=== PATIENT | female | born 1950 | race Caucasian/White ===

== ENCOUNTER 2021-09-09 11:16 | Inpatient (IN) ==
[2021-09-09 11:45] LABS: Basophils # 0.1 10*3/uL (0.0-0.2); Basophils % 0.4 % (0.0-0.8); Eosinophils # 0.3 10*3/uL (0.0-0.87); Eosinophils % 2.7 % (0.00-10.9); Hematocrit 39.6 VOL% (35.7-47.0); Hemoglobin 12.5 GM/DL (12.0-16.0); Immature Granulocytes % 0.6 %; Immature Granulocytes Absolute 0.07 #; Lymphocytes # 1.3 10*3/uL (1.4-4.0); Lymphocytes % 10.1 % (21.3-54.2); Mean Corpuscular HGB Conc 31.6 GM/DL (32-36); Mean Corpuscular Volume 95.9 FL (87-102); Mean Platelet Volume 10.6 FL (9.6-12.0); Monocytes # 0.8 10*3/uL (0.11-0.8); Monocytes % 6.6 % (1.7-12.7); Neutrophils % 79.6 % (38.7-73.9); Platelet Count 355 T/CUMM (130-400); Red Blood Count 4.13 MC/CUMM (3.8-5.5); Red Cell Distribution Width 14.7 % (9.3-17.3); White Blood Count 12.6 T/CUMM (4-12)
[2021-09-09 12:10] LABS: Alanine Aminotransferase 10 U/L (13-56); Albumin 3.6 G/DL (3.4-5.0); Alkaline Phosphatase 111 U/L (45-117); Aspartate Amino Transferase 15 U/L (0-37); Bilirubin,Total < 0.39 MG/DL (0.20-1.00); Blood Urea Nitrogen 16 MG/DL (7-18); Calcium 9.4 MG/DL (8.5-10.1); Carbon Dioxide 27 MMOL/L (21-32); Chloride 107 MMOL/L (98-107); Glucose 160 MG/DL (74-106); Osmolality,Calculated 282.4 MOS/KG (273-304); Potassium 4.5 MMOL/L (3.5-5.1); Sodium 140 MMOL/L (136-145); Total Protein 6.9 G/DL (6.4-8.2)
[2021-09-09 13:57] LABS: Thyroid Stimulating Hormone 1.94 uIU/ml (0.358-3.74)
[2021-09-09] MEDS ORDERED: GLUCAGON 1 MG VIAL IM PRN (19:16)
[2021-09-09] MEDS ORDERED: MORPHINE 2 MG/1 ML SYRINGE IV PRN (19:16)
[2021-09-09] MEDS ORDERED: ACETAMINOPHEN 325 MG TABLET PO PRN (19:16)
[2021-09-09] MEDS ORDERED: ONDANSETRON 4 MG/2 ML VIAL IV PRN (19:16)
[2021-09-09] MEDS ORDERED: DEXTROSE 10% 250 ML BAG IV PRN (19:18)
[2021-09-09] MEDS: INSULIN REGULAR 100 UNIT/ML SUBCUT SCH (20:00)
[2021-09-09] MEDS: DOCUSATE SODIUM 100 MG CAPSULE PO SCH (20:59)
[2021-09-09] MEDS: metroNIDAZOLE INJ 500 MG/100 ML PREMIX IV SCH (21:12)
[2021-09-09] MEDS ORDERED: NITROGLYCERIN SL 0.4 MG TABLET SL PRN (22:15)
[2021-09-09] MEDS: LOSARTAN 25 MG TABLET PO SCH (22:40)
[2021-09-09] MEDS ORDERED: NAPROXEN 250 MG TABLET PO PRN ×2 (22:48→23:30)
[2021-09-09] MEDS ORDERED: FLUTICASONE 50 MCG NASAL SPRAY 16 GM BOTTLE BOTH NARES PRN (22:52)
[2021-09-09] MEDS ORDERED: ALBUTEROL 0.63 MG/3 ML NEB RESP TX PRN (23:00)
[2021-09-09] MEDS ORDERED: ALBUTEROL 0.63 MG/3 ML NEB RESP TX SCH (23:00)
[2021-09-09] MEDS: BUDESONIDE 0.25 MG/2 ML NEB RESP TX SCH (23:42)
[2021-09-10] MEDS: DULoxetine 30 MG CAPSULE PO SCH ×2 (03:27→21:36)
[2021-09-10] MEDS: POTASSIUM CHLORIDE 20 MEQ TABLET PO SCH ×3 (03:27→21:35)
[2021-09-10] MEDS: CARBIDOPA/LEVODOPA CR 25-100 MG TABLET PO SCH ×3 (03:27→18:40)
[2021-09-10 05:23] LABS: Basophils % 0.4 % (0.0-0.8); Eosinophils # 0.6 10*3/uL (0.0-0.87); Eosinophils % 7.2 % (0.00-10.9); Hematocrit 34.1 VOL% (35.7-47.0); Hemoglobin 10.5 GM/DL (12.0-16.0); Immature Granulocytes % 0.6 %; Immature Granulocytes Absolute 0.05 #; Lymphocytes # 1.7 10*3/uL (1.4-4.0); Lymphocytes % 21.9 % (21.3-54.2); Mean Corpuscular HGB Conc 30.8 GM/DL (32-36); Mean Corpuscular Volume 97.7 FL (87-102); Mean Platelet Volume 10.7 FL (9.6-12.0); Monocytes # 0.7 10*3/uL (0.11-0.8); Monocytes % 8.5 % (1.7-12.7); Neutrophils % 61.4 % (38.7-73.9); Platelet Count 268 T/CUMM (130-400); Red Blood Count 3.49 MC/CUMM (3.8-5.5); Red Cell Distribution Width 14.9 % (9.3-17.3)
[2021-09-10 05:48] LABS: Calcium 8.5 MG/DL (8.5-10.1); Osmolality,Calculated 290.7 MOS/KG (273-304); Potassium 4.2 MMOL/L (3.5-5.1)
[2021-09-10] MEDS: LEVOTHYROXINE 75 MCG TABLET PO SCH (06:04)
[2021-09-10] MEDS: BUDESONIDE 0.25 MG/2 ML NEB RESP TX SCH ×2 (07:25→19:58)
[2021-09-10] MEDS ORDERED: FUROSEMIDE 80 MG TABLET PO SCH (09:00)
[2021-09-10] MEDS ORDERED: INSULIN GLARGINE 100 UNIT/ML SUBCUT SCH (09:00)
[2021-09-10] MEDS ORDERED: predniSONE 5 MG TABLET PO SCH (09:00)
[2021-09-10] MEDS: INSULIN LISPRO 100 UNIT/ML SUBCUT SCH ×2 (10:10→12:14)
[2021-09-10] MEDS: SIMVASTATIN 10 MG TABLET PO SCH (10:11)
[2021-09-10] MEDS: LORATADINE 10 MG TABLET PO SCH (10:11)
[2021-09-10] MEDS: sitaGLIPtin 100 MG TABLET PO SCH (10:12)
[2021-09-10] MEDS: VERAPAMIL SR 180 MG TABLET PO SCH (10:12)
[2021-09-10] MEDS: DOCUSATE SODIUM 100 MG CAPSULE PO SCH ×2 (10:12→21:34)
[2021-09-10] MEDS: LOSARTAN 25 MG TABLET PO SCH ×2 (10:12→21:35)
[2021-09-10] MEDS: PANTOPRAZOLE 40 MG TABLET PO SCH (10:12)
[2021-09-10] MEDS: TAMOXIFEN 20 MG PO SCH (10:54)
[2021-09-10] MEDS: INSULIN REGULAR 100 UNIT/ML SUBCUT SCH ×2 (10:55→17:34)
[2021-09-10] MEDS: ACETAMINOPHEN 325 MG TABLET PO SCH ×2 (12:13→21:35)
[2021-09-10] MEDS: GABAPENTIN 100 MG CAPSULE PO SCH ×3 (12:13→21:34)
[2021-09-10] MEDS: metroNIDAZOLE INJ 500 MG/100 ML PREMIX IV SCH (12:23)
[2021-09-10] MEDS: methylPREDNISolone SOD SUC 40 MG/1 ML VIAL IV SCH ×2 (13:40→21:36)
[2021-09-10] MEDS: FUROSEMIDE 40 MG/4 ML VIAL IV SCH (17:35)
[2021-09-10] MEDS ORDERED: FUROSEMIDE 40 MG TABLET PO SCH (19:00)
[2021-09-10] MEDS: RIVAROXABAN 10 MG TABLET PO SCH (21:49)
[2021-09-11] MEDS: metroNIDAZOLE INJ 500 MG/100 ML PREMIX IV SCH ×3 (00:50→22:36)
[2021-09-11] MEDS: CARBIDOPA/LEVODOPA CR 25-100 MG TABLET PO SCH ×3 (00:52→18:35)
[2021-09-11 05:26] LABS: Basophils % 0.1 % (0.0-0.8); Hematocrit 35.6 VOL% (35.7-47.0); Hemoglobin 11.2 GM/DL (12.0-16.0); Immature Granulocytes % 0.9 %; Immature Granulocytes Absolute 0.13 #; Lymphocytes # 0.7 10*3/uL (1.4-4.0); Lymphocytes % 4.8 % (21.3-54.2); Mean Corpuscular HGB Conc 31.5 GM/DL (32-36); Mean Corpuscular Volume 96.2 FL (87-102); Mean Platelet Volume 10.7 FL (9.6-12.0); Monocytes # 0.2 10*3/uL (0.11-0.8); Monocytes % 1.3 % (1.7-12.7); Neutrophils % 92.9 % (38.7-73.9); Platelet Count 293 T/CUMM (130-400); Red Cell Distribution Width 14.6 % (9.3-17.3); White Blood Count 14.1 T/CUMM (4-12)
[2021-09-11 05:33] LABS: Calcium 9.4 MG/DL (8.5-10.1); Osmolality,Calculated 290.4 MOS/KG (273-304); Potassium 4.8 MMOL/L (3.5-5.1)
[2021-09-11 05:42] LABS: Anisocytosis 1+; Band Neutrophils 4 % (0-10); Lymphocytes 4 % (20-55); Macrocytosis 1+; Platelet Estimate Normal; Total Cells Counted 100
[2021-09-11] MEDS: methylPREDNISolone SOD SUC 40 MG/1 ML VIAL IV SCH ×2 (05:49→12:41)
[2021-09-11] MEDS: LEVOTHYROXINE 75 MCG TABLET PO SCH (05:49)
[2021-09-11] MEDS: BUDESONIDE 0.25 MG/2 ML NEB RESP TX SCH ×2 (07:38→19:19)
[2021-09-11] MEDS: FUROSEMIDE 40 MG/4 ML VIAL IV SCH ×2 (09:25→15:57)
[2021-09-11] MEDS: PANTOPRAZOLE 40 MG TABLET PO SCH (09:26)
[2021-09-11] MEDS: SIMVASTATIN 10 MG TABLET PO SCH (09:26)
[2021-09-11] MEDS: POTASSIUM CHLORIDE 20 MEQ TABLET PO SCH ×2 (09:26→22:33)
[2021-09-11] MEDS: GABAPENTIN 100 MG CAPSULE PO SCH ×3 (09:26→22:35)
[2021-09-11] MEDS: sitaGLIPtin 100 MG TABLET PO SCH (09:26)
[2021-09-11] MEDS: ACETAMINOPHEN 325 MG TABLET PO SCH ×2 (09:26→22:37)
[2021-09-11] MEDS: LORATADINE 10 MG TABLET PO SCH (09:26)
[2021-09-11] MEDS: DOCUSATE SODIUM 100 MG CAPSULE PO SCH ×2 (09:26→22:34)
[2021-09-11] MEDS: LOSARTAN 25 MG TABLET PO SCH ×2 (09:26→22:34)
[2021-09-11] MEDS: VERAPAMIL SR 180 MG TABLET PO SCH (09:26)
[2021-09-11] MEDS: INSULIN GLARGINE 100 UNIT/ML SUBCUT SCH (09:27)
[2021-09-11] MEDS: INSULIN REGULAR 100 UNIT/ML SUBCUT SCH ×2 (09:27→17:00)
[2021-09-11] MEDS: INSULIN LISPRO 100 UNIT/ML SUBCUT SCH ×2 (09:28→12:41)
[2021-09-11] MEDS ORDERED: NITROGLYCERIN 2% OINT 1 INCH/GM PACK TOP ONE (10:05)
[2021-09-11] MEDS: TAMOXIFEN 20 MG PO SCH (11:08)
[2021-09-11] MEDS: DULoxetine 30 MG CAPSULE PO SCH (22:34)
[2021-09-11] MEDS: RIVAROXABAN 10 MG TABLET PO SCH (22:37)
[2021-09-12] MEDS: CARBIDOPA/LEVODOPA CR 25-100 MG TABLET PO SCH ×3 (00:22→18:08)
[2021-09-12] MEDS: methylPREDNISolone SOD SUC 40 MG/1 ML VIAL IV SCH ×3 (01:51→21:28)
[2021-09-12] MEDS: LEVOTHYROXINE 75 MCG TABLET PO SCH (05:33)
[2021-09-12 06:08] LABS: Basophils % 0.2 % (0.0-0.8); Hematocrit 36.5 VOL% (35.7-47.0); Hemoglobin 11.4 GM/DL (12.0-16.0); Immature Granulocytes % 1.4 %; Immature Granulocytes Absolute 0.25 #; Lymphocytes # 0.7 10*3/uL (1.4-4.0); Lymphocytes % 3.7 % (21.3-54.2); Mean Corpuscular HGB Conc 31.2 GM/DL (32-36); Mean Corpuscular Volume 96.8 FL (87-102); Mean Platelet Volume 10.8 FL (9.6-12.0); Monocytes # 0.6 10*3/uL (0.11-0.8); Monocytes % 3.5 % (1.7-12.7); Neutrophils % 91.2 % (38.7-73.9); Platelet Count 322 T/CUMM (130-400); Red Blood Count 3.77 MC/CUMM (3.8-5.5); Red Cell Distribution Width 15.2 % (9.3-17.3); White Blood Count 17.7 T/CUMM (4-12)
[2021-09-12 06:33] LABS: Anisocytosis 1+; Band Neutrophils 1 % (0-10); Eosinophils 1 % (0-10); Lymphocytes 4 % (20-55); Macrocytosis Slight; Platelet Estimate Normal; Total Cells Counted 100
[2021-09-12 06:34] LABS: Calcium 9.2 MG/DL (8.5-10.1); Osmolality,Calculated 290.3 MOS/KG (273-304); Potassium 4.4 MMOL/L (3.5-5.1)
[2021-09-12] MEDS: BUDESONIDE 0.25 MG/2 ML NEB RESP TX SCH ×2 (07:05→19:38)
[2021-09-12] MEDS: INSULIN LISPRO 100 UNIT/ML SUBCUT SCH (09:39)
[2021-09-12] MEDS: INSULIN GLARGINE 100 UNIT/ML SUBCUT SCH (09:39)
[2021-09-12] MEDS: INSULIN REGULAR 100 UNIT/ML SUBCUT SCH ×2 (09:39→18:08)
[2021-09-12] MEDS: FUROSEMIDE 40 MG/4 ML VIAL IV SCH ×2 (09:39→16:38)
[2021-09-12] MEDS: VERAPAMIL SR 180 MG TABLET PO SCH (09:39)
[2021-09-12] MEDS: LORATADINE 10 MG TABLET PO SCH (09:40)
[2021-09-12] MEDS: LOSARTAN 25 MG TABLET PO SCH ×2 (09:40→21:27)
[2021-09-12] MEDS: sitaGLIPtin 100 MG TABLET PO SCH (09:40)
[2021-09-12] MEDS: POTASSIUM CHLORIDE 20 MEQ TABLET PO SCH ×2 (09:40→21:27)
[2021-09-12] MEDS: PANTOPRAZOLE 40 MG TABLET PO SCH (09:40)
[2021-09-12] MEDS: SIMVASTATIN 10 MG TABLET PO SCH (09:40)
[2021-09-12] MEDS: DOCUSATE SODIUM 100 MG CAPSULE PO SCH ×2 (09:40→21:27)
[2021-09-12] MEDS: ACETAMINOPHEN 325 MG TABLET PO SCH ×2 (09:40→21:26)
[2021-09-12] MEDS: GABAPENTIN 100 MG CAPSULE PO SCH ×3 (09:40→21:28)
[2021-09-12] MEDS ORDERED: POTASSIUM CHLORIDE RIDER 10 MEQ/100 ML PREMIX IV PRN (10:43)
[2021-09-12] MEDS ORDERED: MAGNESIUM SULF RIDER 2 GM/50 ML PREMIX IV PRN (10:43)
[2021-09-12] MEDS ORDERED: DIAZEPAM 5 MG TABLET PO ONE (10:43)
[2021-09-12] MEDS ORDERED: diphenhydrAMINE CAP 25 MG CAPSULE PO ONE (10:43)
[2021-09-12] MEDS: TAMOXIFEN 20 MG PO SCH (10:55)
[2021-09-12] MEDS ORDERED: INSULIN LISPRO 100 UNIT/ML SUBCUT SCH (12:00)
[2021-09-12] MEDS: metroNIDAZOLE INJ 500 MG/100 ML PREMIX IV SCH ×2 (14:07→22:13)
[2021-09-12] MEDS: DULoxetine 30 MG CAPSULE PO SCH (21:28)
[2021-09-12] MEDS: NON-FORMULARY MEDICATION (Tamoxifen 20 MG) PO SCH (21:29)
[2021-09-13] MEDS: CARBIDOPA/LEVODOPA CR 25-100 MG TABLET PO SCH ×3 (00:16→17:09)
[2021-09-13 05:41] LABS: Calcium 8.8 MG/DL (8.5-10.1); Osmolality,Calculated 290.1 MOS/KG (273-304); Potassium 4.3 MMOL/L (3.5-5.1)
[2021-09-13] MEDS: LEVOTHYROXINE 75 MCG TABLET PO SCH (05:48)
[2021-09-13] MEDS: SODIUM CHLORIDE 0.9% 1,000 ML IV SCH ×3 (05:48→22:03)
[2021-09-13] MEDS ORDERED: diphenhydrAMINE CAP 25 MG CAPSULE PO ONE (06:00)
[2021-09-13] MEDS ORDERED: DIAZEPAM 5 MG TABLET PO ONE (06:00)
[2021-09-13 06:15] LABS: Basophils % 0.3 % (0.0-0.8); Eosinophils # 0.1 10*3/uL (0.0-0.87); Eosinophils % 0.4 % (0.00-10.9); Hematocrit 37.5 VOL% (35.7-47.0); Hemoglobin 11.7 GM/DL (12.0-16.0); Immature Granulocytes % 1.5 %; Immature Granulocytes Absolute 0.23 #; Lymphocytes # 2.1 10*3/uL (1.4-4.0); Lymphocytes % 13.8 % (21.3-54.2); Mean Corpuscular HGB Conc 31.2 GM/DL (32-36); Mean Corpuscular Volume 97.9 FL (87-102); Mean Platelet Volume 10.7 FL (9.6-12.0); Monocytes # 1.5 10*3/uL (0.11-0.8); Monocytes % 9.6 % (1.7-12.7); Neutrophils % 74.4 % (38.7-73.9); Platelet Count 298 T/CUMM (130-400); Red Blood Count 3.83 MC/CUMM (3.8-5.5); Red Cell Distribution Width 15.7 % (9.3-17.3); White Blood Count 15.5 T/CUMM (4-12)
[2021-09-13] MEDS: BUDESONIDE 0.25 MG/2 ML NEB RESP TX SCH ×2 (07:25→19:19)
[2021-09-13] MEDS: INSULIN LISPRO 100 UNIT/ML SUBCUT SCH ×2 (08:12→11:59)
[2021-09-13] MEDS: INSULIN REGULAR 100 UNIT/ML SUBCUT SCH ×2 (08:28→17:09)
[2021-09-13] MEDS: INSULIN GLARGINE 100 UNIT/ML SUBCUT SCH (09:00)
[2021-09-13] MEDS: VERAPAMIL SR 180 MG TABLET PO SCH (09:58)
[2021-09-13] MEDS: LOSARTAN 25 MG TABLET PO SCH ×2 (09:59→20:47)
[2021-09-13] MEDS: methylPREDNISolone SOD SUC 40 MG/1 ML VIAL IV SCH ×2 (10:01→20:48)
[2021-09-13] MEDS ORDERED: NITROGLYCERIN DRIP 50 MG/250 ML BOTTLE IV ONE (12:33)
[2021-09-13] MEDS ORDERED: MIDAZOLAM 2 MG/2 ML VIAL ONE (12:33)
[2021-09-13] MEDS ORDERED: HYDROmorphone 1 MG/1 ML SYRINGE ONE (12:33)
[2021-09-13] MEDS ORDERED: VERAPAMIL 5 MG/2 ML VIAL ONE (12:34)
[2021-09-13] MEDS ORDERED: ENOXAPARIN 60 MG/0.6 ML SYRINGE ONE (12:47)
[2021-09-13] MEDS: GABAPENTIN 100 MG CAPSULE PO SCH ×3 (14:58→20:47)
[2021-09-13] MEDS: POTASSIUM CHLORIDE 20 MEQ TABLET PO SCH ×2 (15:01→20:46)
[2021-09-13] MEDS: DOCUSATE SODIUM 100 MG CAPSULE PO SCH ×2 (15:01→20:45)
[2021-09-13] MEDS: FUROSEMIDE 40 MG/4 ML VIAL IV SCH ×2 (15:01→15:13)
[2021-09-13] MEDS: PANTOPRAZOLE 40 MG TABLET PO SCH (15:01)
[2021-09-13] MEDS: LORATADINE 10 MG TABLET PO SCH (15:02)
[2021-09-13] MEDS: metroNIDAZOLE INJ 500 MG/100 ML PREMIX IV SCH (15:02)
[2021-09-13] MEDS: SIMVASTATIN 10 MG TABLET PO SCH (15:02)
[2021-09-13] MEDS: sitaGLIPtin 100 MG TABLET PO SCH (15:02)
[2021-09-13] MEDS: ACETAMINOPHEN 325 MG TABLET PO SCH ×2 (15:12→20:46)
[2021-09-13] MEDS: DULoxetine 30 MG CAPSULE PO SCH (20:46)
[2021-09-13] MEDS: NON-FORMULARY MEDICATION (Tamoxifen 20 MG) PO SCH (20:49)
[2021-09-14] MEDS: metroNIDAZOLE INJ 500 MG/100 ML PREMIX IV SCH ×2 (00:24→14:02)
[2021-09-14] MEDS: CARBIDOPA/LEVODOPA CR 25-100 MG TABLET PO SCH ×2 (00:25→08:55)
[2021-09-14 05:15] LABS: Basophils % 0.2 % (0.0-0.8); Hematocrit 37.4 VOL% (35.7-47.0); Hemoglobin 11.6 GM/DL (12.0-16.0); Immature Granulocytes % 1.7 %; Immature Granulocytes Absolute 0.24 #; Lymphocytes # 0.7 10*3/uL (1.4-4.0); Lymphocytes % 5.4 % (21.3-54.2); Mean Corpuscular Volume 97.4 FL (87-102); Mean Platelet Volume 10.8 FL (9.6-12.0); Monocytes # 0.6 10*3/uL (0.11-0.8); Monocytes % 4.5 % (1.7-12.7); Neutrophils % 88.2 % (38.7-73.9); Platelet Count 297 T/CUMM (130-400); Red Blood Count 3.84 MC/CUMM (3.8-5.5); Red Cell Distribution Width 15.3 % (9.3-17.3); White Blood Count 13.8 T/CUMM (4-12)
[2021-09-14] MEDS: LEVOTHYROXINE 75 MCG TABLET PO SCH (05:27)
[2021-09-14] MEDS: SODIUM CHLORIDE 0.9% 1,000 ML IV SCH (05:27)
[2021-09-14 05:32] LABS: Calcium 8.7 MG/DL (8.5-10.1); Osmolality,Calculated 286.5 MOS/KG (273-304); Potassium 4.9 MMOL/L (3.5-5.1)
[2021-09-14] MEDS: BUDESONIDE 0.25 MG/2 ML NEB RESP TX SCH (07:30)
[2021-09-14] MEDS: INSULIN REGULAR 100 UNIT/ML SUBCUT SCH (08:46)
[2021-09-14] MEDS: INSULIN LISPRO 100 UNIT/ML SUBCUT SCH ×2 (08:47→12:12)
[2021-09-14] MEDS: FUROSEMIDE 40 MG/4 ML VIAL IV SCH (08:48)
[2021-09-14] MEDS: methylPREDNISolone SOD SUC 40 MG/1 ML VIAL IV SCH (08:49)
[2021-09-14] MEDS: VERAPAMIL SR 180 MG TABLET PO SCH (08:52)
[2021-09-14] MEDS: PANTOPRAZOLE 40 MG TABLET PO SCH (08:53)
[2021-09-14] MEDS: LORATADINE 10 MG TABLET PO SCH (08:53)
[2021-09-14] MEDS: POTASSIUM CHLORIDE 20 MEQ TABLET PO SCH (08:54)
[2021-09-14] MEDS: ACETAMINOPHEN 325 MG TABLET PO SCH (08:54)
[2021-09-14] MEDS: SIMVASTATIN 10 MG TABLET PO SCH (08:54)
[2021-09-14] MEDS: LOSARTAN 25 MG TABLET PO SCH (08:54)
[2021-09-14] MEDS: GABAPENTIN 100 MG CAPSULE PO SCH (08:54)
[2021-09-14] MEDS: DOCUSATE SODIUM 100 MG CAPSULE PO SCH (08:54)
[2021-09-14] MEDS: sitaGLIPtin 100 MG TABLET PO SCH (08:54)
[2021-09-14] MEDS: INSULIN GLARGINE 100 UNIT/ML SUBCUT SCH (11:07)
[2021-09-14 12:44] VITALS: BP 111/73
== END 2021-09-14 14:18 | disposition home or self-care (01) | DRG 287 ==
LOC: N.ED 11:16 → N.EDINP 11:16 → N.TELES 16:50
PROVIDERS: ADMIT Internal Medicine; ATTEND Internal Medicine